=== PATIENT | female | born 1955 | race Caucasian/White ===

== ENCOUNTER 2021-07-06 09:54 | Outpatient (CLI) | payer MEDICARE | END 2021-07-06 09:55 | disposition home or self-care (01) | LOC: CSHMRI 09:54 | PROVIDERS: ATTEND Family Medicine | DX: M25.572 Pain in left ankle and joints of left foot (principal); M25.472 Effusion, left ankle; M76.62 Achilles tendinitis, left leg; S86.012A Strain of left Achilles tendon, initial encounter; M89.9 Disorder of bone, unspecified; M19.072 Primary osteoarthritis, left ankle and foot ==